=== PATIENT | male | born 1965 | race Two or more races ===

== ENCOUNTER 2018-01-29 13:35 | Emergency (ER) | payer BC ==
[~2018-01-29] VITALS: Ht 157.5 cm; Wt 74.0 kg
[~2018-01-29 13:35] MED LIST: ALBU6.7H INH; ALBU8.5H8 IH; AZIT250T PO; DIPH25CA83 PO; FLUT16SP26 BOTHNARES; GUAI120015 PO; METH4TAB81 PO; PANT-47 PO
[2018-01-29] MEDS ORDERED: ipratropium/albuterol 3ml nebule NEB ONE (13:40)
[2018-01-29 14:30] LABS: BASOPHILS # (AUTO) 0.1 X10'3 (0-0.2); BASOPHILS % (AUTO) 0.7 % (0-1); EOSINOPHILS # (AUTO) 0.7 X10'3 (0-0.9); EOSINOPHILS % (AUTO) 8.5 % (0-6); HEMOGLOBIN 15.6 g/dl (14.0-17.9); LYMPHOCYTES # (AUTO) 1.6 X10'3 (1.1-4.8); LYMPHOCYTES % (AUTO) 20.4 % (21-51); MEAN CORPUSCULAR HEMOGLOBIN 31.3 PG (27.0-31.0); MEAN CORPUSCULAR HGB CONC 34.8 % (33.0-36.5); MEAN CORPUSCULAR VOLUME 89.9 FL (78-98); MEAN PLATELET VOLUME 8.4 FL (7.4-10.4); MONOCYTES # (AUTO) 0.7 X10'3 (0-0.9); NEUTROPHILS # (AUTO) 4.8 X10'3 (1.8-7.7); NEUTROPHILS % (AUTO) 61.4 % (42-75); PLATELET COUNT 249 X10'3 (140-440); RED CELL DISTRIBUTION WIDTH 13.2 % (11.5-14.5); WHITE BLOOD COUNT 7.9 X10'3 (4.5-11.0)
[2018-01-29 14:48] LABS: ALANINE AMINOTRANSFERASE 39 U/L (12-78); ALBUMIN 3.5 G/DL (3.4-5.0); ALBUMIN/GLOBULIN RATIO 0.9 (1.1-1.5); ALKALINE PHOSPHATASE 84 IU/L (46-116); ANION GAP 9 (8-16); ASPARTATE AMINO TRANSFERASE 17 U/L (10-37); BILIRUBIN,TOTAL 0.3 MG/DL (0.1-1.0); BLOOD UREA NITROGEN 17 MG/DL (7-18); BUN/CREATININE RATIO 16.3 (5.4-32.0); CHLORIDE 106 MMOL/L (99-107); CREATININE 1.04 MG/DL (0.60-1.10); GLUCOSE 109 MG/DL (70-104); POTASSIUM 4.3 MMOL/L (3.5-5.1); SODIUM 143 MMOL/L (135-145); TOTAL PROTEIN 7.2 G/DL (6.4-8.2); eGFR 75 ML/MIN
[2018-01-29] MEDS ORDERED: ALBU8.5H8 INH (15:37)
[2018-01-29] MEDS ORDERED: FLUT1BLS3 INH (15:37)
[2018-01-29 15:57] VITALS: BP 152/98
== END 2018-01-29 16:26 | disposition home or self-care (01) ==
LOC: ER 13:36
DX: J45.909 Unspecified asthma, uncomplicated (principal); M54.2 Cervicalgia; Z88.6 Allergy status to analgesic agent; Z79.899 Other long term (current) drug therapy
CPT/HCPCS: 36415; 71046; 80053; 84484; 85025; 93005; 94640; 94760; 99285